=== PATIENT | female | born 1950 | race Caucasian/White ===

== ENCOUNTER 2017-10-08 11:31 | Day surgery (SDC) | payer OTHER ==
[~2017-10-08] VITALS: Ht 162.6 cm; Wt 86.8 kg
[~2017-10-08 11:31] MED LIST: ASPI81CH PO; CALCAVITD PO; CELE200 PO; CYCL10 PO; FISH1000 PO; GABA300 PO; Garlic Oil1000 MG PO; LOSARTAN POTASS50 MG PO; METHI10 PO; METO25; METR59TL TOP; METR70GEL VAG; Multivitamin1 EAC2 PO; OXYB5 PO; OXYC5; PREG75 PO; TRAM50 PO; Tapazole5 MG PO; [UNRECOGNIZED DRUG - CODE] TOP
== END 2017-10-08 13:50 | disposition home or self-care (01) ==
LOC: ORSCSDS 11:31
PROVIDERS: Internal Medicine Gastroenterology
PROC: 0DB68ZX Excision of Stomach, Via Natural or Artificial Opening Endoscopic, Diagnostic (ICD-10-PCS; principal; 2017-10-08 13:00)
DX: R13.10 Dysphagia, unspecified (principal); K21.9 Gastro-esophageal reflux disease without esophagitis; K29.70 Gastritis, unspecified, without bleeding; K20.9 Esophagitis, unspecified; K22.70 Barrett's esophagus without dysplasia; E05.90 Thyrotoxicosis, unspecified without thyrotoxic crisis or storm; I10 Essential (primary) hypertension; Z87.891 Personal history of nicotine dependence; Z79.82 Long term (current) use of aspirin; Z79.899 Other long term (current) drug therapy
CPT/HCPCS: 88305; 88342; J2250; J7120

== ENCOUNTER 2018-11-28 19:20 | Emergency (ER) | payer OTHER ==
[~2018-11-28] VITALS: Ht 162.6 cm; Wt 72.6 kg
[2018-11-28 19:50] LABS: BASOPHILS ABSOLUTE AUTO 0.03 K/mm3 (0.00-0.23); BASOPHILS PERCENT AUTO 1 % (0-2); EOSINOPHILS ABSOLUTE AUTO 0.14 K/mm3 (0.00-0.68); EOSINOPHILS PERCENT AUTO 2 % (0-6); Hematocrit 42.5 % (33.0-51.0); Hemoglobin 14.1 g/dL (11.5-16.0); IMMATURE GRAN ABSOLUTE AUTO 0.01 K/mm3 (0.00-0.10); IMMATURE GRAN PERCENT AUTO 0 % (0-1); LYMPHOCYTES ABSOLUTE AUTO 1.91 K/mm3 (0.84-5.20); LYMPHOCYTES PERCENT AUTO 31 % (21-46); MONOCYTES ABSOLUTE AUTO 0.65 K/mm3 (0.16-1.47); MONOCYTES PERCENT AUTO 11 % (4-13); Mean Corpuscular HGB 29.9 pg (26.0-34.0); Mean Corpuscular HGB Conc 33.2 g/dL (31.5-36.5); Mean Corpuscular Volume 90 fL (80-100); Mean Platelet Volume 10.9 fL (9.1-12.4); NEUTROPHILS ABSOLUTE AUTO 3.46 K/mm3 (1.96-9.15); NEUTROPHILS PERCENT AUTO 56 % (41-73); Platelet Count 148 K/mm3 (150-400); RDW Coefficient Variation 12.1 % (11.7-14.2); RDW Standard Deviation 39.8 fL (35.1-46.3); Red Blood Cell Count 4.72 M/mm3 (3.80-5.20)
[2018-11-28 20:02] LABS: Alanine Aminotransfer (ALT/SGP 30 U/L (12-78); Albumin, Blood 3.8 g/dL (3.4-5.0); Albumin/Globulin Ratio 1.1 (0.8-1.8); Alk Phos 124 U/L (50-136); Anion Gap 8 mmol/L (6-16); Aspartate Aminotrans (AST/SGOT 20 U/L (12-37); Bilirubin, Total 0.7 mg/dL (0.1-1.0); Blood Urea Nitrogen 19 mg/dL (8-24); Bun/Creatinine Ratio 34.6 (12.0-20.0); CO2, Blood 25 mmol/L (21-32); Calcium, Blood 9.3 mg/dL (8.5-10.1); Chloride, Blood 108 mmol/L (98-108); Creatinine, Blood 0.55 mg/dL (0.40-1.00); Globulin, Blood 3.4 g/dL (2.2-4.0); Glomerular Filtration Rate >60 (60-); Glucose, Blood 102 mg/dL (70-99); Potassium, Blood 3.6 mmol/L (3.5-5.5); Sodium, Blood 141 mmol/L (136-145); Total Protein, Blood 7.2 g/dL (6.4-8.2)
== END 2018-11-28 21:54 | disposition home or self-care (01) ==
LOC: ER 19:20
PROVIDERS: Emergency Medicine
DX: S01.511A Laceration without foreign body of lip, initial encounter (principal); W18.30XA Fall on same level, unspecified, initial encounter; F41.9 Anxiety disorder, unspecified; Z87.891 Personal history of nicotine dependence
CPT/HCPCS: 12011; 36415; 70450; 80053; 85025; 93005; 93010; 99284-25

== ENCOUNTER 2020-09-08 16:47 | Emergency (ER) | payer OTHER ==
[~2020-09-08] VITALS: Ht 167.6 cm; Wt 75.3 kg
[~2020-09-08 16:47] MED LIST changes: +ATEN50; +CELE200; +PANT40; +PRED10; +Selenium100 MCG
[2020-09-08] MEDS ORDERED: Norco 5-325 Ta1 EACH PO (20:21)
== END 2020-09-08 20:39 | disposition home or self-care (01) ==
LOC: ER 16:47
DX: S43.015A Anterior dislocation of left humerus, initial encounter (principal); E03.9 Hypothyroidism, unspecified; I10 Essential (primary) hypertension; F32.9 Major depressive disorder, single episode, unspecified; Z79.82 Long term (current) use of aspirin; Z87.891 Personal history of nicotine dependence; Z88.2 Allergy status to sulfonamides; Z88.5 Allergy status to narcotic agent; Z79.52 Long term (current) use of systemic steroids; W01.10XA Fall on same level from slipping, tripping and stumbling with subsequent striking against unspecified object, initial encounter; Z79.899 Other long term (current) drug therapy
CPT/HCPCS: 23650; 73030; 96361-59; 96374-59; 96375-59; 96376-59; 99152; 99283-25; A9270; J1170; J1885; J2405; J2704; J7030

== ENCOUNTER 2023-01-22 18:00 | Emergency (ER) | payer OTHER ==
[~2023-01-22] VITALS: Ht 162.6 cm; Wt 63.5 kg
[~2023-01-22 18:00] MED LIST changes: +ALEN70 PO; +CARBIDOPA-LEVO1 EAC9 PO; +CELEBREX200 MG PO; +EUTHYROX88 MC1 PO; +LOSA50 PO; +Norco 5-325 Ta1 EACH PO; +OXYC5 PO; +TIOT18 INH
[2023-01-22 18:05] VITALS: BP 163/107
[2023-01-22] MEDS ORDERED: TRANSDERM-SCOP1 EA13 TD (18:18)
[2023-01-22] MEDS ORDERED: Vitamin K100 MCG PO (18:19)
== END 2023-01-22 20:16 | disposition home or self-care (01) ==
LOC: ER 18:00
DX: R09.89 Other specified symptoms and signs involving the circulatory and respiratory systems (principal); Z85.3 Personal history of malignant neoplasm of breast; I10 Essential (primary) hypertension; E03.9 Hypothyroidism, unspecified; G20 Parkinson's disease; Z88.2 Allergy status to sulfonamides; Z88.5 Allergy status to narcotic agent; Z79.899 Other long term (current) drug therapy; Z87.891 Personal history of nicotine dependence
CPT/HCPCS: 71045; 99283-25